=== PATIENT | male | born 1960 | race Caucasian/White ===

== ENCOUNTER 2016-06-29 16:56 | Emergency (ER) | payer MEDICARE, MEDICAID ==
[2016-06-29 17:32] LABS: BASO # 0.1 x10^3/uL (0.0-0.2); BASO % 1 % (0-3); EOS % 2 % (0-3); HEMATOCRIT 49.3 % (39.0-53.0); HEMOGLOBIN 16.8 g/dL (13.0-17.5); LYMPH # 2.6 x10^3/uL (1.0-4.8); LYMPH % 30 % (24-48); MEAN CORPUSCULAR HEMOGLOBIN 32 pg (25-35); MEAN CORPUSCULAR HGB CONC 34 g/dL (31-37); MEAN CORPUSCULAR VOLUME 93 fL (79-100); MONO % 11 % (0-9); NEUT % 56 % (31-73); PLATELET COUNT 242 x10^3/uL (140-400); RED BLOOD COUNT 5.28 x10^6/uL (4.30-5.70); RED CELL DISTRIBUTION WIDTH 13.8 % (11.5-14.5); WHITE BLOOD COUNT 8.8 x10^3/uL (4.0-11.0)
[2016-06-29 17:55] LABS: CREATININE 1.2 mg/dL (0.7-1.3); GFR 63.1
[2016-06-29 18:10] LABS: ALBUMIN 3.5 g/dL (3.4-5.0); TOTAL BILIRUBIN 0.3 mg/dL (0.2-1.0); TOTAL PROTEIN 6.9 g/dL (6.4-8.2)
[2016-06-29 19:05] LABS: BARBITURATES NEG (NEG); BENZODIAZEPINES POS (NEG); CANNABINOIDS NEG (NEG); COCAINE NEG (NEG); METHADONE NEG (NEG); OPIATES NEG (NEG); PHENCYCLIDINE NEG (NEG)
[2016-06-29 19:06] LABS: ETHANOL, URINE POS (NEG)
--- NOTE | 2016-06-29 19:13 | PHYS DOC ---
Past Medical History Past Medical History: Anxiety, Bipolar, Depression, High Cholesterol, Hypertension, Other Additional Past Medical Histor: TBI Past Surgical History: Other Additional Past Surgical Histo: SKIN CA REMOVED(L GROIN), LEFT HAND Alcohol Use: Heavy Drug Use: None Adult General Chief Complaint Chief Complaint: SUICDAL IDEATION HPI HPI 55-year-old male with a long psychiatric history who was just released from [facility] secondary to suicidal ideation returns today stating he would like to slit his wrists with a steak knife. He states he wants to do this because he just wants to be out of pain. He has some pain in his chest which he states he had during his stay [facility]. He denies any nausea or vomiting. He denies diaphoresis. He denies any shortness of breath or dyspnea on exertion. He has not had any fever chills or sweats. He denies any alcohol or illicit drug use. [] Review of Systems Review of Systems Constitutional: Denies fever or chills [] Eyes: Denies change in visual acuity, redness, or eye pain [] HENT: Denies nasal congestion or sore throat [] Respiratory: Denies cough or shortness of breath [] Cardiovascular: No additional information not addressed in HPI [] GI: Denies abdominal pain, nausea, vomiting, bloody stools or diarrhea [] : Denies dysuria or hematuria [] Musculoskeletal: Denies back pain or joint pain [] Integument: Denies rash or skin lesions [] Neurologic: Denies headache, focal weakness or sensory changes [] Endocrine: Denies polyuria or polydipsia [] Allergies Allergies Allergies Coded Allergies Type Severity Reaction Last Updated Verified fluoxetine Allergy Intermediate 06/29/16 Yes haloperidol Allergy Intermediate 06/29/16 Yes sulfamethoxazole Allergy Intermediate 06/29/16 Yes topiramate Allergy Intermediate 06/29/16 Yes trimethoprim Allergy Intermediate 06/29/16 Yes Physical Exam Physical Exam Constitutional: Well developed, well nourished, no acute distress, non-toxic appearance. [] HENT: Normocephalic, atraumatic, bilateral external ears normal, oropharynx moist, no oral exudates, nose normal. [] Eyes: PERRLA, EOMI, conjunctiva normal, no discharge. [] Neck: Normal range of motion, no tenderness, supple, no stridor. [] Cardiovascular:Heart rate regular rhythm, no murmur [] Lungs & Thorax: Bilateral breath sounds clear to auscultation [] Abdomen: Bowel sounds normal, soft, no tenderness, no masses, no pulsatile masses. [] Skin: Warm, dry, no erythema, no rash. [] Back: No tenderness, no CVA tenderness. [] Extremities: No tenderness, no cyanosis, no clubbing, ROM intact, no edema. [] Neurologic: Alert and oriented X 3, normal motor function, normal sensory function, no focal deficits noted. [] Psychologic: Affect normal, judgement normal, mood normal. [] Current Patient Data Vital Signs Vital Signs Date Time Temp Pulse Resp B/P Pulse Ox O2 Delivery O2 Flow Rate FiO2 06/29/16 18:39 93 14 129/87 96 Room Air 06/29/16 17:20 98.6 98.6 Lab Values Laboratory Tests Test 06/29/16 17:05 06/29/16 18:51 White Blood Count 8.8x10^3/uL (4.0-11.0) Red Blood Count 5.28x10^6/uL (4.30-5.70) Hemoglobin 16.8g/dL (13.0-17.5) Hematocrit 49.3% (39.0-53.0) Mean Corpuscular Volume 93fL (79-100) Mean Corpuscular Hemoglobin 32pg (25-35) Mean Corpuscular Hemoglobin Concent 34g/dL (31-37) Red Cell Distribution Width 13.8% (11.5-14.5) Platelet Count 242x10^3/uL (140-400) Neutrophils (%) (Auto) 56% (31-73) Lymphocytes (%) (Auto) 30% (24-48) Monocytes (%) (Auto) 11% (0-9) H Eosinophils (%) (Auto) 2% (0-3) Basophils (%) (Auto) 1% (0-3) Neutrophils # (Auto) 4.9x10^3uL (1.8-7.7) Lymphocytes # (Auto) 2.6x10^3/uL (1.0-4.8) Monocytes # (Auto) 1.0x10^3/uL (0.0-1.1) Eosinophils # (Auto) 0.2x10^3/uL (0.0-0.7) Basophils # (Auto) 0.1x10^3/uL (0.0-0.2) Sodium Level 143mmol/L (136-145) Potassium Level 4.0mmol/L (3.5-5.1) Chloride Level 106mmol/L (98-107) Carbon Dioxide Level 24mmol/L (21-32) Anion Gap 13 (6-14) Blood Urea Nitrogen 10mg/dL (8-26) Creatinine 1.2mg/dL (0.7-1.3) Estimated GFR (Cockcroft-Gault) 63.1 BUN/Creatinine Ratio 8 (6-20) Glucose Level 115mg/dL (70-99) H Calcium Level 9.0mg/dL (8.5-10.1) Total Bilirubin 0.3mg/dL (0.2-1.0) Aspartate Amino Transferase (AST) 19U/L (15-37) Alanine Aminotransferase (ALT) 23U/L (16-63) Alkaline Phosphatase 86U/L (46-116) Troponin I Quantitative < 0.017ng/mL (0.000-0.055) Total Protein 6.9g/dL (6.4-8.2) Albumin 3.5g/dL (3.4-5.0) Albumin/Globulin Ratio 1.0 (1.0-1.7) Ethyl Alcohol Level 172mg/dL (0-10) H Urine Opiates Screen Neg (NEG) Urine Methadone Screen Neg (NEG) Urine Barbiturates Neg (NEG) Urine Phencyclidine Screen Neg (NEG) Urine Amphetamine/Methamphetamine Neg (NEG) Urine Benzodiazepines Screen Pos (NEG) Urine Cocaine Screen Neg (NEG) Urine Cannabinoids Screen Neg (NEG) Urine Ethyl Alcohol Pos (NEG) Laboratory Tests 06/29/16 17:05 Laboratory Tests 06/29/16 17:05 EKG EKG [EKG: Normal sinus rhythm rate of [address]-T changes] Radiology/Procedures Radiology/Procedures [] Course & Med Decision Making Course & Med Decision Making Pertinent Labs and Imaging studies reviewed. (See chart for details) ED course: Evaluation reveals a very anxious depressed 55-year-old male who is suicidal. He is medically cleared from my standpoint. Psychiatric assessment team evaluated the patient and determined that he needed to be readmitted for stabilization. I agree with this assessment.] Dragon Disclaimer Dragon Disclaimer This electronic medical record was generated, in whole or in part, using a voice recognition dictation system. Departure Departure Impression: Primary Impression: Suicidal ideation Disposition: 05 TRANSFER OTHER Condition: STABLE Referrals: NO PCP (PCP) KESHA PUENTE DO Jun 29, 2016 19:12
[2016-06-29] MEDS ORDERED: LIDO:MAALOX:DONNATAL 1:1:1 15 ML SINGLE DOSE SWSW ONE (21:15)
--- NOTE | 2016-06-29 23:27 | ACF ---
Admission Forms Criteria PSYCHIATRIC DISORDERS Clinical Indications for Inpatient Care (Place 'X' for any and all applicable criteria): Ongoing inpatient care may be needed for ANY ONE of the following(1)(2)(3)(4)(6) (7)(8): [X]I. Danger to self or others not manageable at lower level of care. [ ]II. Grave disability (eg, inability to perform self care necessary at lower level of care) [ ]III. Agitation or inappropriate behavior interfering with care for primary condition (eg, attempting to discontinue lines or drains prematurely, unable to cooperate with respiratory care) [ ]IV. Severe disability or disorder indicated by ALL of the following: [ ]a) Severe behavioral health disorder-related symptoms or condition indicated by ANY ONE of the following: [ ]i) Severe problem with cognition, memory, judgment, or impulse control [ ]ii) Severe clinical manifestations (eg, hallucinations, delusions, other acute psychotic symptoms, keegan, extreme agitation or anxiety) [ ]b) Patient management at lower level of care is not feasible until acute intervention or modification is initiated. Extended stay beyond goal length of stay for the primary condition may be indicated when ANY ONE of the following is present: (1)(2)(3)(4): [ ]a) Patient is a danger to self or others and not manageable at lower level of care. [ ]b) Behavior crisis management, including physical or chemical restraints, is required and is not available at a lower level of care. [ ]c) Behavioral symptoms (e.g., agitation, somnolence, inappropriate behavior) are present, and are not manageable at a lower level of care. [ ]d) Patient cannot understand follow-up treatment and crisis plan. [ ]e) Provider and supports are not sufficiently available at lower level of care. [ ]f) Patient cannot participate (e.g., verify absence of plan for harm) and is in needed of monitoring. The original [employer] content created by [employer] has been revised. The portions of the content which have been revised are identified through the use of italic text or in bold, and [facility] has neither reviewed nor approved the modified material. All other unmodified content is copyright [facility] [employer]. Please see references footnoted in the original [facility] edition 2016 Admission Criteria Met?: Yes GERMÁN VILLA Jun 29, 2016 23:26
[2016-06-30 04:22] VITALS: BP 123/83
--- NOTE | 2016-06-30 06:44 | EKG ---
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
== END 2016-06-30 05:13 | disposition short-term general hospital (02) ==
LOC: ER 16:56
DX: R45.851 Suicidal ideations (principal); F32.9 Major depressive disorder, single episode, unspecified; E78.00 Pure hypercholesterolemia, unspecified; I10 Essential (primary) hypertension; Z88.1 Allergy status to other antibiotic agents; Z88.8 Allergy status to other drugs, medicaments and biological substances
CPT/HCPCS: 36415; 80053; 84484; 85027; 93005; 99285; G0480; G0481

== ENCOUNTER 2016-08-18 16:55 | Inpatient (IN) | payer MEDICARE, OTHER ==
[~2016-08-18] VITALS: Ht 188 cm; Wt 86.7 kg
[2016-08-18] MEDS ORDERED: IV NORMAL SALINE 1000ML BAG 1,000 ML IV SCH (17:05)
[2016-08-18 17:23] LABS: BASO # 0.1 x10^3/uL (0.0-0.2); BASO % 1 % (0-3); EOS % 2 % (0-3); HEMATOCRIT 45.9 % (39.0-53.0); HEMOGLOBIN 15.6 g/dL (13.0-17.5); LYMPH # 2.9 x10^3/uL (1.0-4.8); LYMPH % 40 % (24-48); MEAN CORPUSCULAR HEMOGLOBIN 32 pg (25-35); MEAN CORPUSCULAR HGB CONC 34 g/dL (31-37); MEAN CORPUSCULAR VOLUME 95 fL (79-100); MONO % 10 % (0-9); NEUT % 48 % (31-73); PLATELET COUNT 231 x10^3/uL (140-400); RED BLOOD COUNT 4.86 x10^6/uL (4.30-5.70); RED CELL DISTRIBUTION WIDTH 13.6 % (11.5-14.5); WHITE BLOOD COUNT 7.3 x10^3/uL (4.0-11.0)
--- NOTE | 2016-08-18 17:26 | RAD ---
AP portable chest radiograph 08/18/2016 Clinical History: Overdose. An AP portable erect digital radiograph of the chest was obtained. No previous studies are available for comparison. The cardiac silhouette is normal in size. The thoracic aorta is mildly tortuous. Patchy left lower lobe atelectasis and/or infiltrate is seen. No pneumothorax or pleural effusion is seen. The osseous structures are grossly intact. Impression: Patchy left lower lobe atelectasis and/or infiltrate.
--- NOTE | 2016-08-18 17:34 | EKG ---
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
[2016-08-18 17:46] LABS: CALCIUM 8.8 mg/dL (8.5-10.1); CREATININE 1.1 mg/dL (0.7-1.3); GFR 69.8; POTASSIUM 3.6 mmol/L (3.5-5.1)
[2016-08-18 17:47] LABS: ETHANOL 162 mg/dL (0-10)
[2016-08-18 17:55] LABS: ALBUMIN 3.5 g/dL (3.4-5.0); ALBUMIN/GLOBULIN RATIO 1.1 (1.0-1.7); MAGNESIUM 1.9 mg/dL (1.8-2.4); TOTAL BILIRUBIN 0.1 mg/dL (0.2-1.0); TOTAL PROTEIN 6.7 g/dL (6.4-8.2)
--- NOTE | 2016-08-18 17:58 | PHYS DOC ---
Past Medical History Past Medical History: Anxiety, Bipolar, Cancer, Depression, High Cholesterol, Hypertension, Other Additional Past Medical Histor: TBI, SKIN CA, PTSD, NECK COMPRESSION FX Past Surgical History: Other Additional Past Surgical Histo: SKIN CA REMOVED(L GROIN), LEFT HAND, TBI, NECK COMPRESSION FX Alcohol Use: Heavy Additional Information: PT REPORTS DRINKING 1/2 PINT OF RUM TODAY. Drug Use: None Adult General Chief Complaint Chief Complaint: OVERDOSE HPI HPI Patient is a 55 year old female who presents after intentional overdose. Patient reports about 1 hour prior to arrival he took 60 tabs of Seroquel ( 400mg each) in an attempt to kill himself because his 56th birthday is coming up on [birth year]20 and he did not want to make to age 56. He also reports drinking some rum. He says he took 1 tab of tramadol, Valium and Zantac which are his regular meds. He does report prior attempt at self-harm in the past. He denies any acute complaints other than fatigue and SI. Review of Systems Review of Systems Constitutional: Fatigue. Denies fever or chills Eyes: Denies change in visual acuity or eye pain HENT: Denies nasal congestion or sore throat Respiratory: Denies cough or shortness of breath Cardiovascular: Denies chest pain GI: Denies abdominal pain, nausea, vomiting, bloody stools or diarrhea : Denies dysuria or hematuria Musculoskeletal: Denies back pain or joint pain Integument: Denies rash or skin lesions Neurologic: Denies headache, focal weakness or sensory changes Current Medications Current Medications Current Medications Medications (Trade) Dose Ordered Sig/Hayes Start Time Stop Time Status Last Admin Dose Admin Albuterol Sulfate 2.5 mg 2.5 mg PRN Q6HRS PRN 08/18/16 18:45 Enoxaparin Sodium (Lovenox 40mg Syringe) 40 mg DAILY 08/19/16 09:00 UNV Levofloxacin/ Dextrose (LEVAQUIN 500mg PREMIX) 100 ml @ 100 mls/hr Q24H 08/18/16 19:00 Multivit Infusn,Adult 4,Vit K/Folic Acid/Thiamine HCl/ Dextrose/Sodium Chloride (Infuvite Adult/ Iv D5% - 1/2 NS) 1,011.2 ml @ 100 mls/ hr DAILY 08/18/16 19:00 UNV Ondansetron HCl (Zofran) 4 mg PRN Q6HRS PRN 08/18/16 18:45 Pantoprazole Sodium 40 mg 40 mg DAILY 08/19/16 09:00 Sodium Chloride (Iv Sodium Chloride 0.45%) 1,000 ml @ 100 mls/hr 1X ONCE 08/18/16 18:45 08/18/16 18:45 DC Allergies Allergies Allergies Coded Allergies Type Severity Reaction Last Updated Verified fluoxetine Allergy Intermediate 06/29/16 Yes haloperidol Allergy Intermediate 06/29/16 Yes sulfamethoxazole Allergy Intermediate 06/29/16 Yes topiramate Allergy Intermediate 06/29/16 Yes trimethoprim Allergy Intermediate 06/29/16 Yes Physical Exam Physical Exam Constitutional: Well developed, well nourished, no acute distress, non-toxic appearance HENT: Normocephalic, atraumatic, bilateral external ears normal Eyes: PERRL, EOMI, conjunctiva normal, no discharge Neck: Normal range of motion, no stridor Cardiovascular: Heart rate normal, regular rhythm, no murmur Lungs & Thorax: Bilateral breath sounds clear to auscultation Abdomen: Bowel sounds normal, soft, non-distended, no TTP Skin: Warm, dry, no erythema, no rash Extremities: No obvious deformity, no edema Neurologic: Somnolent but easily arousable, oriented X 3, GCS 14, strength and sensation to light touch intact throughout Current Patient Data Vital Signs Vital Signs Date Time Temp Pulse Resp B/P Pulse Ox O2 Delivery O2 Flow Rate FiO2 08/18/16 17:16 88 126/93 98 Nasal Cannula 2 08/18/16 16:55 97.3 16 97.3 Lab Values Laboratory Tests Test 08/18/16 17:10 08/18/16 18:02 White Blood Count 7.3x10^3/uL (4.0-11.0) Red Blood Count 4.86x10^6/uL (4.30-5.70) Hemoglobin 15.6g/dL (13.0-17.5) Hematocrit 45.9% (39.0-53.0) Mean Corpuscular Volume 95fL (79-100) Mean Corpuscular Hemoglobin 32pg (25-35) Mean Corpuscular Hemoglobin Concent 34g/dL (31-37) Red Cell Distribution Width 13.6% (11.5-14.5) Platelet Count 231x10^3/uL (140-400) Neutrophils (%) (Auto) 48% (31-73) Lymphocytes (%) (Auto) 40% (24-48) Monocytes (%) (Auto) 10% (0-9) H Eosinophils (%) (Auto) 2% (0-3) Basophils (%) (Auto) 1% (0-3) Neutrophils # (Auto) 3.5x10^3uL (1.8-7.7) Lymphocytes # (Auto) 2.9x10^3/uL (1.0-4.8) Monocytes # (Auto) 0.7x10^3/uL (0.0-1.1) Eosinophils # (Auto) 0.1x10^3/uL (0.0-0.7) Basophils # (Auto) 0.1x10^3/uL (0.0-0.2) Sodium Level 148mmol/L (136-145) H Potassium Level 3.6mmol/L (3.5-5.1) Chloride Level 111mmol/L (98-107) H Carbon Dioxide Level 25mmol/L (21-32) Anion Gap 12 (6-14) Blood Urea Nitrogen 10mg/dL (8-26) Creatinine 1.1mg/dL (0.7-1.3) Estimated GFR (Cockcroft-Gault) 69.8 BUN/Creatinine Ratio 9 (6-20) Glucose Level 108mg/dL (70-99) H Calcium Level 8.8mg/dL (8.5-10.1) Magnesium Level 1.9mg/dL (1.8-2.4) Total Bilirubin 0.1mg/dL (0.2-1.0) L Aspartate Amino Transferase (AST) 19U/L (15-37) Alanine Aminotransferase (ALT) 24U/L (16-63) Alkaline Phosphatase 100U/L (46-116) Total Protein 6.7g/dL (6.4-8.2) Albumin 3.5g/dL (3.4-5.0) Albumin/Globulin Ratio 1.1 (1.0-1.7) Salicylates Level < 2.8mg/dL (2.8-20.0) L Salicylate Last Dose Date Salicylate Last Dose Time Acetaminophen Level < 2mcg/ml (10-30) L Acetaminophen Last Dose Date Acetaminophen Last Dose Time Ethyl Alcohol Level 162mg/dL (0-10) H Urine Collection Type Unknown Urine Color Yellow Urine Clarity Clear Urine pH 6.0 Urine Specific [place] 1.010 Urine Protein Negativemg/dL (NEG-TRACE) Urine Glucose (UA) Negativemg/dL (NEG) Urine Ketones (Stick) Negativemg/dL (NEG) Urine Blood Negative (NEG) Urine Nitrite Negative (NEG) Urine Bilirubin Negative (NEG) Urine Urobilinogen Dipstick 0.2mg/dL (0.2 mg/dL) Urine Leukocyte Esterase Negative (NEG) Urine RBC 0/HPF (0-2) Urine WBC 0/HPF (0-4) Urine Bacteria 0/HPF (0-FEW) Urine Mucus Slight/LPF Urine Opiates Screen Neg (NEG) Urine Methadone Screen Neg (NEG) Urine Barbiturates Neg (NEG) Urine Phencyclidine Screen Neg (NEG) Urine Amphetamine/Methamphetamine Neg (NEG) Urine Benzodiazepines Screen Pos (NEG) Urine Cocaine Screen Neg (NEG) Urine Cannabinoids Screen Neg (NEG) Urine Ethyl Alcohol Pos (NEG) Laboratory Tests 08/18/16 17:10 Laboratory Tests 08/18/16 17:10 EKG EKG EKG (my read): sinus rhythm, rate 91, LAD, intervals wnl, QTc 435ms, no acute ST /T changes Radiology/Procedures Radiology/Procedures CXR: Impression: Patchy left lower lobe atelectasis and/or infiltrate. Course & Med Decision Making Course & Med Decision Making Pertinent Labs and Imaging studies reviewed. (See chart for details) Patient is 55-year-old male who presents after intentional overdose. Per poison control, will need to watch mental status and keep on equipment monitor phototypesetting due to possibility of arrhythmia (specifically arising from QT prolongation). Just out of timeframe for activated charcoal, and due to concern for declining mental status would not wish to give this anyways. IV fluid bolus ordered. EKG, chest x -ray, labs ordered to evaluate. One-to-one observation ordered. QT normal on EKG. Imaging results as above; as patient does not have symptoms of pneumonia nor leukocytosis or fever, will not treat for that. Labs notable for elevated ethanol level, hypernatremia. Discussed results with patient. Discussed with Dr. Chairez, will admit under her care for further evaluation and treatment. Dragon Disclaimer Dragon Disclaimer This electronic medical record was generated, in whole or in part, using a voice recognition dictation system. Departure Departure Impression: Primary Impression: Overdose Disposition: 09 ADMITTED INPATIENT Admitting Physician: Khai Chairez Condition: GUARDED Referrals: NO PCP (PCP) FELICE RIVERA MD Aug 18, 2016 17:58
[2016-08-18 18:16] LABS: BILIRUBIN,URINE NEGATIVE (NEG); GLUCOSE,URINE NEGATIVE (NEG); NITRITE,URINE NEGATIVE (NEG); PROTEIN,URINE NEGATIVE (NEG-TRACE); UROBILINOGEN,URINE 0.2 mg/dL (0.2 mg/dL)
[2016-08-18 18:20] LABS: BARBITURATES NEG (NEG); BENZODIAZEPINES POS (NEG); CANNABINOIDS NEG (NEG); COCAINE NEG (NEG); METHADONE NEG (NEG); OPIATES NEG (NEG); PHENCYCLIDINE NEG (NEG)
[2016-08-18 18:25] LABS: ETHANOL, URINE POS (NEG)
[2016-08-18 18:27] LABS: RBC,URINE 0 /HPF (0-2); WBC,URINE 0 /HPF (0-4)
[2016-08-18 18:28] LABS: BACTERIA,URINE 0 /HPF (0-FEW)
[2016-08-18] MEDS ORDERED: IV 1/2 NORMAL SALINE 1,000 ML IV ONE (18:45)
[2016-08-18] MEDS ORDERED: ALBUTEROL SULFATE 2.5 MG/3 ML NEBU. NEB PRN (18:45)
--- NOTE | 2016-08-18 18:52 | PDOC1 ---
History and Physical Date of Admission Date of Admission 08/18/16 Identification/Chief Complaint Chief Complaint overdose Problems: Source Source: Chart review, Patient History of Present Illness History of Present Illness 55yo M, was sent from EMS for seroquel overdose. He tried to suicide. He tried other ways to suicide before. He lives a lone, no family or friends. Has bipolar type 2 with severe depression, PTSD. He took 60 pills of seroquel this afternoon, 400mg per pill. He was on the phone with the person from a psych hosp while taking his pills, who called EMS and sent him here. since taking the seroquel, he drank lots of water, with N/V ( bloody), and severe epigastric abd pain. vitals stable in ER. i was told he was lethargic in ER, when i saw him , he was able to talk pretty logically. agree to get psych help and readmit to the psych facility. Past Medical History Past Medical History depression, bipolar Past Surgical History Past Surgical History neck sx Social History Smoke: No ALCOHOL: social Drugs: None Current Problem List Problem List Problems Medical Problems: (1) Overdose Status: Acute (2) Suicidal ideation Status: Acute Current Medications Current Medications Current Medications Medications (Trade) Dose Ordered Sig/Hayes Start Time Stop Time Status Last Admin Dose Admin Albuterol Sulfate 2.5 mg 2.5 mg PRN Q6HRS PRN 08/18/16 18:45 Levofloxacin/ Dextrose (LEVAQUIN 500mg PREMIX) 100 ml @ 100 mls/hr Q24H 08/18/16 19:00 Multivit Infusn,Adult 4,Vit K/Folic Acid/Thiamine HCl/ Dextrose/Sodium Chloride (Infuvite Adult/ Iv D5% - 1/2 NS) 1,011.2 ml @ 100 mls/ hr DAILY 08/19/16 09:00 UNV Ondansetron HCl 4 mg 4 mg PRN Q6HRS PRN 08/18/16 18:45 Sodium Chloride (Iv Sodium Chloride 0.45%) 1,000 ml @ 100 mls/hr 1X ONCE 08/18/16 18:45 08/18/16 18:45 DC Allergies Allergies Allergies Coded Allergies Type Severity Reaction Last Updated Verified fluoxetine Allergy Intermediate 06/29/16 Yes haloperidol Allergy Intermediate 06/29/16 Yes sulfamethoxazole Allergy Intermediate 06/29/16 Yes topiramate Allergy Intermediate 06/29/16 Yes trimethoprim Allergy Intermediate 06/29/16 Yes ROS Review of System CONSTITUTIONAL: No fever or chills EYES: No recent changes SKIN: No rash or itching CARDIOVASCULAR: No chest pain, syncope, palpitations, or edema RESPIRATORY: No SOB or cough GASTROINTESTINAL: No nausea, vomiting or abdominal pain NEUROLOGICAL: No headaches or weakness ENDOCRINE: No cold or heat intolerance GENITOURINARY: No urgency or frequency of urination MUSCULOSKELETAL: No back pain or joint pain LYMPHATICS: No enlarged lymph nodes PSYCHIATRIC: No anxiety or depression Physical Exam Physical Exam GEN.: No apparent distress. Alert and oriented. HEENT: Head is normocephalic, atraumatic NECK: Supple. LUNGS: Clear to auscultation. HEART: RRR, S1, S2 present. Peripheral pulses intact ABDOMEN: Soft, nontender. Positive bowel sounds. EXTREMITIES: Without any cyanosis. NEUROLOGIC: Normal speech, normal tone PSYCHIATRIC: Normal affect, normal mood. SKIN: No ulcerations Vitals Vitals Vital Signs Date Time Temp Pulse Resp B/P Pulse Ox O2 Delivery O2 Flow Rate FiO2 08/18/16 17:16 88 126/93 98 Nasal Cannula 2 08/18/16 16:55 97.3 16 97.3 Labs Labs Laboratory Tests Test 08/18/16 17:10 08/18/16 18:02 White Blood Count 7.3x10^3/uL (4.0-11.0) Red Blood Count 4.86x10^6/uL (4.30-5.70) Hemoglobin 15.6g/dL (13.0-17.5) Hematocrit 45.9% (39.0-53.0) Mean Corpuscular Volume 95fL (79-100) Mean Corpuscular Hemoglobin 32pg (25-35) Mean Corpuscular Hemoglobin Concent 34g/dL (31-37) Red Cell Distribution Width 13.6% (11.5-14.5) Platelet Count 231x10^3/uL (140-400) Neutrophils (%) (Auto) 48% (31-73) Lymphocytes (%) (Auto) 40% (24-48) Monocytes (%) (Auto) 10% (0-9) Eosinophils (%) (Auto) 2% (0-3) Basophils (%) (Auto) 1% (0-3) Neutrophils # (Auto) 3.5x10^3uL (1.8-7.7) Lymphocytes # (Auto) 2.9x10^3/uL (1.0-4.8) Monocytes # (Auto) 0.7x10^3/uL (0.0-1.1) Eosinophils # (Auto) 0.1x10^3/uL (0.0-0.7) Basophils # (Auto) 0.1x10^3/uL (0.0-0.2) Sodium Level 148mmol/L (136-145) Potassium Level 3.6mmol/L (3.5-5.1) Chloride Level 111mmol/L (98-107) Carbon Dioxide Level 25mmol/L (21-32) Anion Gap 12 (6-14) Blood Urea Nitrogen 10mg/dL (8-26) Creatinine 1.1mg/dL (0.7-1.3) Estimated GFR (Cockcroft-Gault) 69.8 BUN/Creatinine Ratio 9 (6-20) Glucose Level 108mg/dL (70-99) Calcium Level 8.8mg/dL (8.5-10.1) Magnesium Level 1.9mg/dL (1.8-2.4) Total Bilirubin 0.1mg/dL (0.2-1.0) Aspartate Amino Transf (AST/SGOT) 19U/L (15-37) Alanine Aminotransferase (ALT/SGPT) 24U/L (16-63) Alkaline Phosphatase 100U/L (46-116) Total Protein 6.7g/dL (6.4-8.2) Albumin 3.5g/dL (3.4-5.0) Albumin/Globulin Ratio 1.1 (1.0-1.7) Salicylates Level < 2.8mg/dL (2.8-20.0) Salicylate Last Dose Date Salicylate Last Dose Time Acetaminophen Level < 2mcg/ml (10-30) Acetaminophen Last Dose Date Acetaminophen Last Dose Time Ethyl Alcohol Level 162mg/dL (0-10) Urine Collection Type Unknown Urine Color Yellow Urine Clarity Clear Urine pH 6.0 Urine Specific [place] 1.010 Urine Protein Negativemg/dL (NEG-TRACE) Urine Glucose (UA) Negativemg/dL (NEG) Urine Ketones (Stick) Negativemg/dL (NEG) Urine Blood Negative (NEG) Urine Nitrite Negative (NEG) Urine Bilirubin Negative (NEG) Urine Urobilinogen Dipstick 0.2mg/dL (0.2 mg/dL) Urine Leukocyte Esterase Negative (NEG) Urine RBC 0/HPF (0-2) Urine WBC 0/HPF (0-4) Urine Bacteria 0/HPF (0-FEW) Urine Mucus Slight/LPF Urine Opiates Screen Neg (NEG) Urine Methadone Screen Neg (NEG) Urine Barbiturates Neg (NEG) Urine Phencyclidine Screen Neg (NEG) Urine Amphetamine/Methamphetamine Neg (NEG) Urine Benzodiazepines Screen Pos (NEG) Urine Cocaine Screen Neg (NEG) Urine Cannabinoids Screen Neg (NEG) Urine Ethyl Alcohol Pos (NEG) Laboratory Tests Test 08/18/16 17:10 08/18/16 18:02 White Blood Count 7.3x10^3/uL (4.0-11.0) Red Blood Count 4.86x10^6/uL (4.30-5.70) Hemoglobin 15.6g/dL (13.0-17.5) Hematocrit 45.9% (39.0-53.0) Mean Corpuscular Volume 95fL (79-100) Mean Corpuscular Hemoglobin 32pg (25-35) Mean Corpuscular Hemoglobin Concent 34g/dL (31-37) Red Cell Distribution Width 13.6% (11.5-14.5) Platelet Count 231x10^3/uL (140-400) Neutrophils (%) (Auto) 48% (31-73) Lymphocytes (%) (Auto) 40% (24-48) Monocytes (%) (Auto) 10% (0-9) Eosinophils (%) (Auto) 2% (0-3) Basophils (%) (Auto) 1% (0-3) Neutrophils # (Auto) 3.5x10^3uL (1.8-7.7) Lymphocytes # (Auto) 2.9x10^3/uL (1.0-4.8) Monocytes # (Auto) 0.7x10^3/uL (0.0-1.1) Eosinophils # (Auto) 0.1x10^3/uL (0.0-0.7) Basophils # (Auto) 0.1x10^3/uL (0.0-0.2) Sodium Level 148mmol/L (136-145) Potassium Level 3.6mmol/L (3.5-5.1) Chloride Level 111mmol/L (98-107) Carbon Dioxide Level 25mmol/L (21-32) Anion Gap 12 (6-14) Blood Urea Nitrogen 10mg/dL (8-26) Creatinine 1.1mg/dL (0.7-1.3) Estimated GFR (Cockcroft-Gault) 69.8 BUN/Creatinine Ratio 9 (6-20) Glucose Level 108mg/dL (70-99) Calcium Level 8.8mg/dL (8.5-10.1) Magnesium Level 1.9mg/dL (1.8-2.4) Total Bilirubin 0.1mg/dL (0.2-1.0) Aspartate Amino Transf (AST/SGOT) 19U/L (15-37) Alanine Aminotransferase (ALT/SGPT) 24U/L (16-63) Alkaline Phosphatase 100U/L (46-116) Total Protein 6.7g/dL (6.4-8.2) Albumin 3.5g/dL (3.4-5.0) Albumin/Globulin Ratio 1.1 (1.0-1.7) Salicylates Level < 2.8mg/dL (2.8-20.0) Salicylate Last Dose Date Salicylate Last Dose Time Acetaminophen Level < 2mcg/ml (10-30) Acetaminophen Last Dose Date Acetaminophen Last Dose Time Ethyl Alcohol Level 162mg/dL (0-10) Urine Collection Type Unknown Urine Color Yellow Urine Clarity Clear Urine pH 6.0 Urine Specific [place] 1.010 Urine Protein Negativemg/dL (NEG-TRACE) Urine Glucose (UA) Negativemg/dL (NEG) Urine Ketones (Stick) Negativemg/dL (NEG) Urine Blood Negative (NEG) Urine Nitrite Negative (NEG) Urine Bilirubin Negative (NEG) Urine Urobilinogen Dipstick 0.2mg/dL (0.2 mg/dL) Urine Leukocyte Esterase Negative (NEG) Urine RBC 0/HPF (0-2) Urine WBC 0/HPF (0-4) Urine Bacteria 0/HPF (0-FEW) Urine Mucus Slight/LPF Urine Opiates Screen Neg (NEG) Urine Methadone Screen Neg (NEG) Urine Barbiturates Neg (NEG) Urine Phencyclidine Screen Neg (NEG) Urine Amphetamine/Methamphetamine Neg (NEG) Urine Benzodiazepines Screen Pos (NEG) Urine Cocaine Screen Neg (NEG) Urine Cannabinoids Screen Neg (NEG) Urine Ethyl Alcohol Pos (NEG) VTE Prophylaxis Ordered VTE Prophylaxis Devices: Yes VTE Pharmacological Prophylaxi: Yes Assessment/Plan Assessment/Plan 1. suicidal attempt with drug overdose (seroquel) 2. previous suicidal attempts 3. severe depression, bipolar type 2 4. HTN 5. HLD 6. PTSD 7. HYPernatremia plan: 1. sw, psych eval 2. 1 to 1 ob ok to admit to ICU 3. ivf with banana bag EKG tmr, monitor QT dvt ppx npo for now, gi ppx SALVADOR OBRIEN MD Aug 18, 2016 18:52
[2016-08-18] MEDS ORDERED: MULTIVIT INFUSN,ADULT 4,VIT K 10 ML, FOLIC ACID 1 MG, THIAMINE 100 MG in IV DEXTROSE 5 ... IV SCH (19:00)
--- NOTE | 2016-08-18 20:04 | ACF ---
Admission Forms Criteria DRUG INGESTION OR OVERDOSE Clinical Indications for Admission to Inpatient Care ( Place 'X' for any and all applicable criteria): Admission is indicated for severe toxicity as indicated by ANY ONE of the following(1)(2)(3)(4)(5)(6): [X]I. Inpatient admission required rather than observation care (Also use Drug Ingestion or Overdose: Observation Care guideline as appropriate) because of ANY ONE of the following: [ ]a) Altered mental status that is severe or persistent [ ]b) Clinical finding (eg, metabolic acidosis, hypoglycemia, bradycardia) that is severe or persistent [ ]c) Toxic drug level that is persistent [X]d) Psychiatric risk status not acceptable for outpatient management [ ]e) Continuous intravenous infusion of anticoagulation, platelet inhibitor, vasoactive, or antiarrhythmic medication (15)(16) [ ]f) Other condition, treatment or monitoring requiring inpatient admission [ ]II. Respiratory abnormalities [ ]III. Specific finding indicating severe and likely prolonged drug toxicity [ ]IV. Hemodynamic instability [ ]V. Dangerous arrhythmia [ ]. Hypertension requiring inpatient treatment Extended stay beyond goal length of stay may be needed for (4): [ ]a) Neurologic or respiratory compromise [ ]b) Hemodynamic instability [ ]c) Persistent toxic drug levels (25) [ ]d) Severe drug toxicities or complications [ ]e) Ongoing antidote treatment (eg, acetaminophen overdose)(5) [ ]f) Older patients(65 years or older) The original [employer] content created by [employer] has been revised. The portions of the content which have been revised are identified through the use of italic text or in bold, and [facility] has neither reviewed nor approved the modified material. All other unmodified content is copyright [employer]. Please see references footnoted in the original [employer] edition 2016 Admission Criteria Met?: Yes GERMÁN VILLA Aug 18, 2016 20:04
[2016-08-18 20:15] VITALS: BP 140/91
[2016-08-18 20:30] VITALS: BP 138/91
[2016-08-18] MEDS: MULTIVIT INFUSN,ADULT 4,VIT K 10 ML, FOLIC ACID 1 MG, THIAMINE 100 MG in IV DEXTROSE 5 ... IV SCH (20:34)
[2016-08-18] MEDS: ENOXAPARIN 40 MG/0.4 ML DISP.SYRIN. SQ SCH (20:50)
[2016-08-18] MEDS: ONDANSETRON PF 4 MG/2 ML VIAL. IV PRN (21:18)
[2016-08-18 21:52] VITALS: BP 140/87
[2016-08-18 23:02] VITALS: BP 120/88
[2016-08-18] MEDS ORDERED: QUET400T PO (23:23)
[2016-08-18] MEDS ORDERED: DIAZEPAM10 MG PO (23:23)
[2016-08-18] MEDS ORDERED: CYPR4TAB (23:23)
[2016-08-18] MEDS ORDERED: TRAM50TA PO (23:23)
[2016-08-18] MEDS ORDERED: RANI300T PO (23:23)
[2016-08-19] VITALS (17 sets, daily range): BP systolic 107–158; BP diastolic 71–92
[2016-08-19] MEDS: ONDANSETRON PF 4 MG/2 ML VIAL. IV PRN (03:21)
[2016-08-19 05:54] LABS: BASO # 0.1 x10^3/uL (0.0-0.2); BASO % 1 % (0-3); EOS % 1 % (0-3); HEMOGLOBIN 14.7 g/dL (13.0-17.5); LYMPH # 1.9 x10^3/uL (1.0-4.8); LYMPH % 16 % (24-48); MEAN CORPUSCULAR HEMOGLOBIN 31 pg (25-35); MEAN CORPUSCULAR HGB CONC 33 g/dL (31-37); MEAN CORPUSCULAR VOLUME 96 fL (79-100); MONO % 10 % (0-9); NEUT % 73 % (31-73); PLATELET COUNT 224 x10^3/uL (140-400); RED BLOOD COUNT 4.68 x10^6/uL (4.30-5.70); RED CELL DISTRIBUTION WIDTH 13.9 % (11.5-14.5); WHITE BLOOD COUNT 11.8 x10^3/uL (4.0-11.0)
[2016-08-19 06:06] LABS: CALCIUM 8.4 mg/dL (8.5-10.1); CREATININE 1.2 mg/dL (0.7-1.3); GFR 63.1; POTASSIUM 3.8 mmol/L (3.5-5.1)
--- NOTE | 2016-08-19 08:06 | EKG ---
[facility] [address] [place] [address] Test Date: 2016-08-19 Test Time: 07:56:17 Pat Name: ISELA LÓPEZ Department: Room: Gender: M Joint Filler: : 1960 Requested By: SALVADOR OBRIEN Order Number: [id number] Reading MD: Measurements Intervals [place] Rate: 87 P: 50 IA: 142 QRS: -43 QRSD: 102 T: 44 QT: 368 QTc: 449 Interpretive Statements SINUS RHYTHM LOW LIMB LEAD VOLTAGE LEFT ANTERIOR FASCICULAR BLOCK INCOMPLETE RIGHT BUNDLE BRANCH BLOCK ABNORMAL ECG RI6.01 No previous ECG available for comparison
[2016-08-19] MEDS ORDERED: DIAZEPAM10 MG PO (08:49)
[2016-08-19] MEDS ORDERED: PANTOPRAZOLE IV PUSH 40 MG VIAL. IVP SCH (09:00)
[2016-08-19] MEDS: MULTIVIT INFUSN,ADULT 4,VIT K 10 ML, FOLIC ACID 1 MG, THIAMINE 100 MG in IV DEXTROSE 5 ... IV SCH (09:16)
[2016-08-19] MEDS: FAMOTIDINE 20 MG TABLET. PO SCH (10:31)
[2016-08-19] MEDS: TRAMADOL 50 MG TABLET. PO PRN ×2 (10:32→16:55)
[2016-08-19] MEDS: QUEtiapine 100 MG TABLET. PO SCH ×2 (11:00→15:49)
[2016-08-19] MEDS: DIAZEPAM 5 MG TABLET PO SCH ×2 (11:30→15:48)
--- NOTE | 2016-08-19 11:53 | PDOC ---
PROGRESS NOTES Chief Complaint Chief Complaint 1. suicidal attempt with drug overdose 2. previous suicidal attempts 3. severe depression, bipolar type 2 4. HTN 5. HLD 6. PTSD 7. Hypernatremia 8. nausea, poor po intake, 9. EtOH abuse pl History of Present Illness History of Present Illness PAT team eval pending pt has marked nausea, try mult nausea meds, IV fluid, will need to eat a little better Vitals Vitals Vital Signs Date Time Temp Pulse Resp B/P Pulse Ox O2 Delivery O2 Flow Rate FiO2 08/19/16 11:32 15 96 Room Air 08/19/16 11:00 78 134/80 08/19/16 08:00 97.9 2.0 97.9 Physical Exam General: Alert, Oriented X3, Cooperative Heart: Regular rate, Normal S1 Lungs: Wheezing Abdomen: Soft Extremities: No clubbing Skin: No breakdown Labs LABS Laboratory Tests Test 08/18/16 17:10 08/18/16 18:02 08/19/16 05:30 White Blood Count 7.3x10^3/uL (4.0-11.0) 11.8x10^3/uL (4.0-11.0) Red Blood Count 4.86x10^6/uL (4.30-5.70) 4.68x10^6/uL (4.30-5.70) Hemoglobin 15.6g/dL (13.0-17.5) 14.7g/dL (13.0-17.5) Hematocrit 45.9% (39.0-53.0) 45.0% (39.0-53.0) Mean Corpuscular Volume 95fL (79-100) 96fL (79-100) Mean Corpuscular Hemoglobin 32pg (25-35) 31pg (25-35) Mean Corpuscular Hemoglobin Concent 34g/dL (31-37) 33g/dL (31-37) Red Cell Distribution Width 13.6% (11.5-14.5) 13.9% (11.5-14.5) Platelet Count 231x10^3/uL (140-400) 224x10^3/uL (140-400) Neutrophils (%) (Auto) 48% (31-73) 73% (31-73) Lymphocytes (%) (Auto) 40% (24-48) 16% (24-48) Monocytes (%) (Auto) 10% (0-9) 10% (0-9) Eosinophils (%) (Auto) 2% (0-3) 1% (0-3) Basophils (%) (Auto) 1% (0-3) 1% (0-3) Neutrophils # (Auto) 3.5x10^3uL (1.8-7.7) 8.6x10^3uL (1.8-7.7) Lymphocytes # (Auto) 2.9x10^3/uL (1.0-4.8) 1.9x10^3/uL (1.0-4.8) Monocytes # (Auto) 0.7x10^3/uL (0.0-1.1) 1.1x10^3/uL (0.0-1.1) Eosinophils # (Auto) 0.1x10^3/uL (0.0-0.7) 0.1x10^3/uL (0.0-0.7) Basophils # (Auto) 0.1x10^3/uL (0.0-0.2) 0.1x10^3/uL (0.0-0.2) Sodium Level 148mmol/L (136-145) 146mmol/L (136-145) Potassium Level 3.6mmol/L (3.5-5.1) 3.8mmol/L (3.5-5.1) Chloride Level 111mmol/L (98-107) 110mmol/L (98-107) Carbon Dioxide Level 25mmol/L (21-32) 25mmol/L (21-32) Anion Gap 12 (6-14) 11 (6-14) Blood Urea Nitrogen 10mg/dL (8-26) 9mg/dL (8-26) Creatinine 1.1mg/dL (0.7-1.3) 1.2mg/dL (0.7-1.3) Estimated GFR (Cockcroft-Gault) 69.8 63.1 BUN/Creatinine Ratio 9 (6-20) Glucose Level 108mg/dL (70-99) 94mg/dL (70-99) Calcium Level 8.8mg/dL (8.5-10.1) 8.4mg/dL (8.5-10.1) Magnesium Level 1.9mg/dL (1.8-2.4) Total Bilirubin 0.1mg/dL (0.2-1.0) Aspartate Amino Transf (AST/SGOT) 19U/L (15-37) Alanine Aminotransferase (ALT/SGPT) 24U/L (16-63) Alkaline Phosphatase 100U/L (46-116) Total Protein 6.7g/dL (6.4-8.2) Albumin 3.5g/dL (3.4-5.0) Albumin/Globulin Ratio 1.1 (1.0-1.7) Salicylates Level < 2.8mg/dL (2.8-20.0) Salicylate Last Dose Date Salicylate Last Dose Time Acetaminophen Level < 2mcg/ml (10-30) Acetaminophen Last Dose Date Acetaminophen Last Dose Time Ethyl Alcohol Level 162mg/dL (0-10) Urine Collection Type Unknown Urine Color Yellow Urine Clarity Clear Urine pH 6.0 Urine Specific [place] 1.010 Urine Protein Negativemg/dL (NEG-TRACE) Urine Glucose (UA) Negativemg/dL (NEG) Urine Ketones (Stick) Negativemg/dL (NEG) Urine Blood Negative (NEG) Urine Nitrite Negative (NEG) Urine Bilirubin Negative (NEG) Urine Urobilinogen Dipstick 0.2mg/dL (0.2 mg/dL) Urine Leukocyte Esterase Negative (NEG) Urine RBC 0/HPF (0-2) Urine WBC 0/HPF (0-4) Urine Bacteria 0/HPF (0-FEW) Urine Mucus Slight/LPF Urine Opiates Screen Neg (NEG) Urine Methadone Screen Neg (NEG) Urine Barbiturates Neg (NEG) Urine Phencyclidine Screen Neg (NEG) Urine Amphetamine/Methamphetamine Neg (NEG) Urine Benzodiazepines Screen Pos (NEG) Urine Cocaine Screen Neg (NEG) Urine Cannabinoids Screen Neg (NEG) Urine Ethyl Alcohol Pos (NEG) Assessment and Plan Assessmemt and Plan PAT team yogi GARDNER ICU care, ok to transfer to floor, 1:1 Problems Medical Problems: (1) Overdose Status: Acute (2) Suicidal ideation Status: Acute Problems: Comment Review of Relevant I have reviewed the following items juan (where applicable) has been applied. Labs Laboratory Tests Test 08/18/16 17:10 08/18/16 18:02 08/19/16 05:30 White Blood Count 7.3x10^3/uL (4.0-11.0) 11.8x10^3/uL (4.0-11.0) Red Blood Count 4.86x10^6/uL (4.30-5.70) 4.68x10^6/uL (4.30-5.70) Hemoglobin 15.6g/dL (13.0-17.5) 14.7g/dL (13.0-17.5) Hematocrit 45.9% (39.0-53.0) 45.0% (39.0-53.0) Mean Corpuscular Volume 95fL (79-100) 96fL (79-100) Mean Corpuscular Hemoglobin 32pg (25-35) 31pg (25-35) Mean Corpuscular Hemoglobin Concent 34g/dL (31-37) 33g/dL (31-37) Red Cell Distribution Width 13.6% (11.5-14.5) 13.9% (11.5-14.5) Platelet Count 231x10^3/uL (140-400) 224x10^3/uL (140-400) Neutrophils (%) (Auto) 48% (31-73) 73% (31-73) Lymphocytes (%) (Auto) 40% (24-48) 16% (24-48) Monocytes (%) (Auto) 10% (0-9) 10% (0-9) Eosinophils (%) (Auto) 2% (0-3) 1% (0-3) Basophils (%) (Auto) 1% (0-3) 1% (0-3) Neutrophils # (Auto) 3.5x10^3uL (1.8-7.7) 8.6x10^3uL (1.8-7.7) Lymphocytes # (Auto) 2.9x10^3/uL (1.0-4.8) 1.9x10^3/uL (1.0-4.8) Monocytes # (Auto) 0.7x10^3/uL (0.0-1.1) 1.1x10^3/uL (0.0-1.1) Eosinophils # (Auto) 0.1x10^3/uL (0.0-0.7) 0.1x10^3/uL (0.0-0.7) Basophils # (Auto) 0.1x10^3/uL (0.0-0.2) 0.1x10^3/uL (0.0-0.2) Sodium Level 148mmol/L (136-145) 146mmol/L (136-145) Potassium Level 3.6mmol/L (3.5-5.1) 3.8mmol/L (3.5-5.1) Chloride Level 111mmol/L (98-107) 110mmol/L (98-107) Carbon Dioxide Level 25mmol/L (21-32) 25mmol/L (21-32) Anion Gap 12 (6-14) 11 (6-14) Blood Urea Nitrogen 10mg/dL (8-26) 9mg/dL (8-26) Creatinine 1.1mg/dL (0.7-1.3) 1.2mg/dL (0.7-1.3) Estimated GFR (Cockcroft-Gault) 69.8 63.1 BUN/Creatinine Ratio 9 (6-20) Glucose Level 108mg/dL (70-99) 94mg/dL (70-99) Calcium Level 8.8mg/dL (8.5-10.1) 8.4mg/dL (8.5-10.1) Magnesium Level 1.9mg/dL (1.8-2.4) Total Bilirubin 0.1mg/dL (0.2-1.0) Aspartate Amino Transf (AST/SGOT) 19U/L (15-37) Alanine Aminotransferase (ALT/SGPT) 24U/L (16-63) Alkaline Phosphatase 100U/L (46-116) Total Protein 6.7g/dL (6.4-8.2) Albumin 3.5g/dL (3.4-5.0) Albumin/Globulin Ratio 1.1 (1.0-1.7) Salicylates Level < 2.8mg/dL (2.8-20.0) Salicylate Last Dose Date Salicylate Last Dose Time Acetaminophen Level < 2mcg/ml (10-30) Acetaminophen Last Dose Date Acetaminophen Last Dose Time Ethyl Alcohol Level 162mg/dL (0-10) Urine Collection Type Unknown Urine Color Yellow Urine Clarity Clear Urine pH 6.0 Urine Specific [place] 1.010 Urine Protein Negativemg/dL (NEG-TRACE) Urine Glucose (UA) Negativemg/dL (NEG) Urine Ketones (Stick) Negativemg/dL (NEG) Urine Blood Negative (NEG) Urine Nitrite Negative (NEG) Urine Bilirubin Negative (NEG) Urine Urobilinogen Dipstick 0.2mg/dL (0.2 mg/dL) Urine Leukocyte Esterase Negative (NEG) Urine RBC 0/HPF (0-2) Urine WBC 0/HPF (0-4) Urine Bacteria 0/HPF (0-FEW) Urine Mucus Slight/LPF Urine Opiates Screen Neg (NEG) Urine Methadone Screen Neg (NEG) Urine Barbiturates Neg (NEG) Urine Phencyclidine Screen Neg (NEG) Urine Amphetamine/Methamphetamine Neg (NEG) Urine Benzodiazepines Screen Pos (NEG) Urine Cocaine Screen Neg (NEG) Urine Cannabinoids Screen Neg (NEG) Urine Ethyl Alcohol Pos (NEG) Laboratory Tests Test 08/18/16 17:10 08/18/16 18:02 08/19/16 05:30 White Blood Count 7.3x10^3/uL (4.0-11.0) 11.8x10^3/uL (4.0-11.0) Red Blood Count 4.86x10^6/uL (4.30-5.70) 4.68x10^6/uL (4.30-5.70) Hemoglobin 15.6g/dL (13.0-17.5) 14.7g/dL (13.0-17.5) Hematocrit 45.9% (39.0-53.0) 45.0% (39.0-53.0) Mean Corpuscular Volume 95fL (79-100) 96fL (79-100) Mean Corpuscular Hemoglobin 32pg (25-35) 31pg (25-35) Mean Corpuscular Hemoglobin Concent 34g/dL (31-37) 33g/dL (31-37) Red Cell Distribution Width 13.6% (11.5-14.5) 13.9% (11.5-14.5) Platelet Count 231x10^3/uL (140-400) 224x10^3/uL (140-400) Neutrophils (%) (Auto) 48% (31-73) 73% (31-73) Lymphocytes (%) (Auto) 40% (24-48) 16% (24-48) Monocytes (%) (Auto) 10% (0-9) 10% (0-9) Eosinophils (%) (Auto) 2% (0-3) 1% (0-3) Basophils (%) (Auto) 1% (0-3) 1% (0-3) Neutrophils # (Auto) 3.5x10^3uL (1.8-7.7) 8.6x10^3uL (1.8-7.7) Lymphocytes # (Auto) 2.9x10^3/uL (1.0-4.8) 1.9x10^3/uL (1.0-4.8) Monocytes # (Auto) 0.7x10^3/uL (0.0-1.1) 1.1x10^3/uL (0.0-1.1) Eosinophils # (Auto) 0.1x10^3/uL (0.0-0.7) 0.1x10^3/uL (0.0-0.7) Basophils # (Auto) 0.1x10^3/uL (0.0-0.2) 0.1x10^3/uL (0.0-0.2) Sodium Level 148mmol/L (136-145) 146mmol/L (136-145) Potassium Level 3.6mmol/L (3.5-5.1) 3.8mmol/L (3.5-5.1) Chloride Level 111mmol/L (98-107) 110mmol/L (98-107) Carbon Dioxide Level 25mmol/L (21-32) 25mmol/L (21-32) Anion Gap 12 (6-14) 11 (6-14) Blood Urea Nitrogen 10mg/dL (8-26) 9mg/dL (8-26) Creatinine 1.1mg/dL (0.7-1.3) 1.2mg/dL (0.7-1.3) Estimated GFR (Cockcroft-Gault) 69.8 63.1 BUN/Creatinine Ratio 9 (6-20) Glucose Level 108mg/dL (70-99) 94mg/dL (70-99) Calcium Level 8.8mg/dL (8.5-10.1) 8.4mg/dL (8.5-10.1) Magnesium Level 1.9mg/dL (1.8-2.4) Total Bilirubin 0.1mg/dL (0.2-1.0) Aspartate Amino Transf (AST/SGOT) 19U/L (15-37) Alanine Aminotransferase (ALT/SGPT) 24U/L (16-63) Alkaline Phosphatase 100U/L (46-116) Total Protein 6.7g/dL (6.4-8.2) Albumin 3.5g/dL (3.4-5.0) Albumin/Globulin Ratio 1.1 (1.0-1.7) Salicylates Level < 2.8mg/dL (2.8-20.0) Salicylate Last Dose Date Salicylate Last Dose Time Acetaminophen Level < 2mcg/ml (10-30) Acetaminophen Last Dose Date Acetaminophen Last Dose Time Ethyl Alcohol Level 162mg/dL (0-10) Urine Collection Type Unknown Urine Color Yellow Urine Clarity Clear Urine pH 6.0 Urine Specific [place] 1.010 Urine Protein Negativemg/dL (NEG-TRACE) Urine Glucose (UA) Negativemg/dL (NEG) Urine Ketones (Stick) Negativemg/dL (NEG) Urine Blood Negative (NEG) Urine Nitrite Negative (NEG) Urine Bilirubin Negative (NEG) Urine Urobilinogen Dipstick 0.2mg/dL (0.2 mg/dL) Urine Leukocyte Esterase Negative (NEG) Urine RBC 0/HPF (0-2) Urine WBC 0/HPF (0-4) Urine Bacteria 0/HPF (0-FEW) Urine Mucus Slight/LPF Urine Opiates Screen Neg (NEG) Urine Methadone Screen Neg (NEG) Urine Barbiturates Neg (NEG) Urine Phencyclidine Screen Neg (NEG) Urine Amphetamine/Methamphetamine Neg (NEG) Urine Benzodiazepines Screen Pos (NEG) Urine Cocaine Screen Neg (NEG) Urine Cannabinoids Screen Neg (NEG) Urine Ethyl Alcohol Pos (NEG) Medications Current Medications Sodium Chloride 1,000 ml @ 1,000 mls/hr Q1H IV Last administered on 08/18/16t 17:00; Start 08/18/16 at 17:05; Stop 08/18/16 at 18:04; Status DC Levofloxacin/ Dextrose (LEVAQUIN 500mg PREMIX) 100 ml @ 100 mls/hr Q24H IV Last administered on 08/18/16 20:34; Start 08/18/16 at 19:00 Albuterol Sulfate 2.5 mg 2.5 mg PRN Q6HRS PRN NEB SHORTNESS OF BREATH; Start at 18:45 Sodium Chloride (Iv Sodium Chloride 0.45%) 1,000 ml @ 100 mls/hr 1X ONCE IV ; Start 08/18/16 at 18:45; Stop 08/18/16 at 18:45; Status DC Ondansetron HCl 4 mg 4 mg PRN Q6HRS PRN IV NAUSEA Last administered on 03:21; Start 08/18/16 at 18:45 Multivit Infusn,Adult 4,Vit K/Folic Acid/Thiamine HCl/ Dextrose/Sodium Chloride (Infuvite Adult/ Iv D5% - 1/2 NS) 1,011.2 ml @ 100 mls/ hr DAILY IV Last administered on 08/19/16 09:16; Start 08/18/16 at 21:00 Enoxaparin Sodium (Lovenox 40mg Syringe) 40 mg QHS SQ Last administered on 20:50; Start 08/18/16 at 21:00 Pantoprazole Sodium 40 mg 40 mg DAILY IVP Last administered on 08/19/16 10:15; Start 08/19/16 at 09:00 Multivit Infusn,Adult 4,Vit K/Folic Acid/Thiamine HCl/ Dextrose/Sodium Chloride (Infuvite Adult/ Iv D5% - 1/2 NS) 1,011.2 ml @ 100 mls/ hr DAILY IV ; Start 08/18/16 at 19:00; Status UNV Tramadol HCl (Ultram) 100 mg PRN Q6HRS PRN PO PAIN Last administered on 10:32; Start 08/19/16 at 10:00 Diazepam (Valium) 10 mg NOON PO ; Start 08/19/16 at 12:00 Diazepam (Valium) 20 mg DAILY05 PO ; Start 08/20/16 at 05:00; Stop 08/20/16 at 05: 00; Status DC Quetiapine Fumarate (SEROquel) 400 mg BIDAC PO ; Start 08/19/16 at 11:00 Famotidine (Pepcid) 40 mg DAILY06 PO Last administered on 08/19/16 10:31; Start 08/19/16 at 11:00 Diazepam (Valium) 20 mg DAILY05 PO Last administered on 08/19/16 11:30; Start 08/19/16 at 10:30 Active Scripts Active Reported Diazepam 10 Mg Tablet 10 Mg PO NOON Quetiapine Fumarate 400 Mg Tablet 400 Mg PO BIDACBL 30 Days Tramadol Hcl 50 Mg Tablet 100 Mg PO Q6HRS PRN Ranitidine Hcl 300 Mg Tablet 300 Mg PO DAILY05 30 Days Diazepam 10 Mg Tablet 20 Mg PO DAILY05 30 Days Vitals/I & O Vital Sign - Last 24 Hours 08/18/16 08/18/16 08/18/16 08/18/16 16:55 17:06 17:11 17:16 Temp 97.3 97.3 Pulse 92 92 89 88 Resp 16 B/P 144/95 134/93 130/93 126/93 Pulse Ox 96 96 95 98 O2 Delivery Room Air Nasal Cannula Nasal Cannula Nasal Cannula O2 Flow Rate 2 2 2 08/18/16 08/18/16 08/18/16 08/18/16 17:21 17:26 17:36 17:46 Pulse 85 86 91 89 B/P 132/95 142/87 134/94 131/91 Pulse Ox 98 98 98 97 O2 Delivery Nasal Cannula Nasal Cannula Nasal Cannula Nasal Cannula O2 Flow Rate 2 2 2 2 08/18/16 08/18/16 08/18/16 08/18/16 17:56 18:06 18:16 18:26 Pulse 91 89 89 88 B/P 136/95 138/92 130/94 127/93 Pulse Ox 98 98 99 98 O2 Delivery Nasal Cannula Nasal Cannula Nasal Cannula Nasal Cannula O2 Flow Rate 2 2 2 2 08/18/16 08/18/16 08/18/16 08/18/16 18:36 18:46 18:56 19:06 Pulse 85 87 86 86 Resp 17 B/P 129/94 130/97 129/92 124/97 Pulse Ox 99 99 98 98 O2 Delivery Nasal Cannula Nasal Cannula Nasal Cannula Nasal Cannula O2 Flow Rate 2 2 2 2 08/18/16 08/18/16 08/18/16 08/18/16 19:16 19:26 19:26 19:36 Pulse 88 90 90 91 B/P 127/94 133/87 133/87 126/93 Pulse Ox 98 98 98 97 O2 Delivery Nasal Cannula Nasal Cannula Nasal Cannula Nasal Cannula O2 Flow Rate 2 2 2 2 08/18/16 08/18/16 08/18/16 08/18/16 19:41 20:15 20:30 21:52 Temp 98.1 98.1 Pulse 90 87 96 92 Resp 21 20 18 B/P 133/91 140/91 138/91 140/87 Pulse Ox 97 O2 Delivery Nasal Cannula Nasal Cannula Nasal Cannula Nasal Cannula O2 Flow Rate 2 2.0 2.0 2.0 08/18/16 08/18/16 08/18/16 08/19/16 22:41 23:02 23:59 00:05 Pulse 89 87 Resp 19 21 B/P 120/88 114/76 O2 Delivery Nasal Cannula Nasal Cannula Nasal Cannula Nasal Cannula O2 Flow Rate 2.0 2.0 2.0 2.0 08/19/16 08/19/16 08/19/16 08/19/16 01:06 02:20 03:17 04:00 Pulse 94 90 94 88 Resp 14 15 B/P 116/80 140/84 134/92 128/86 Pulse Ox 95 95 94 97 O2 Delivery Nasal Cannula Nasal Cannula Nasal Cannula Nasal Cannula O2 Flow Rate 2.0 2.0 2.0 2.0 08/19/16 08/19/16 08/19/16 08/19/16 04:00 05:00 06:12 07:00 Temp 97.7 97.7 Pulse 94 86 95 Resp 15 16 14 B/P 130/89 158/88 136/86 Pulse Ox 97 96 97 O2 Delivery Nasal Cannula Nasal Cannula Nasal Cannula Nasal Cannula O2 Flow Rate 2.0 2.0 2.0 2.0 08/19/16 08/19/16 08/19/16 08/19/16 08:00 08:00 09:00 10:00 Temp 97.9 97.9 Pulse 91 88 83 Resp 18 17 19 B/P 123/89 125/86 140/88 Pulse Ox 97 96 96 O2 Delivery Nasal Cannula Nasal Cannula Room Air Room Air O2 Flow Rate 2.0 2.0 08/19/16 08/19/16 08/19/16 10:32 11:00 11:32 Pulse 78 Resp 16 18 15 B/P 134/80 Pulse Ox 96 95 96 O2 Delivery Room Air Room Air Room Air Intake and Output 08/18/16 08/18/16 08/19/16 15:00 23:00 07:00 Intake Total 1000 ml 1062.70 ml Output Total 725 ml 450 ml Balance 275 ml 612.70 ml MACIEJ LYNCH MD Aug 19, 2016 11:53
[2016-08-19] MEDS ORDERED: MAG HYDROX/ALUMINUM HYD/SIMETH 30 ML ORAL.SUSP PO PRN (12:00)
[2016-08-19] MEDS ORDERED: LIDO:MAALOX:DONNATAL 1:1:1 15 ML SINGLE DOSE SWSW ONE (12:00)
[2016-08-19] MEDS: ENOXAPARIN 40 MG/0.4 ML DISP.SYRIN. SQ SCH (21:29)
[2016-08-20] MEDS: TRAMADOL 50 MG TABLET. PO PRN ×2 (00:26→09:19)
[2016-08-20 02:50] VITALS: BP 113/77
[2016-08-20 03:44] LABS: BASO # 0.1 x10^3/uL (0.0-0.2); BASO % 1 % (0-3); EOS % 2 % (0-3); HEMATOCRIT 42.3 % (39.0-53.0); HEMOGLOBIN 14.5 g/dL (13.0-17.5); LYMPH # 2.9 x10^3/uL (1.0-4.8); LYMPH % 31 % (24-48); MEAN CORPUSCULAR HEMOGLOBIN 32 pg (25-35); MEAN CORPUSCULAR HGB CONC 34 g/dL (31-37); MEAN CORPUSCULAR VOLUME 93 fL (79-100); MONO % 10 % (0-9); NEUT % 57 % (31-73); PLATELET COUNT 195 x10^3/uL (140-400); RED BLOOD COUNT 4.55 x10^6/uL (4.30-5.70); RED CELL DISTRIBUTION WIDTH 13.5 % (11.5-14.5); WHITE BLOOD COUNT 9.4 x10^3/uL (4.0-11.0)
[2016-08-20 04:00] LABS: ALBUMIN 2.7 g/dL (3.4-5.0); CALCIUM 8.2 mg/dL (8.5-10.1); CREATININE 1.2 mg/dL (0.7-1.3); GFR 62.9; POTASSIUM 3.2 mmol/L (3.5-5.1); TOTAL BILIRUBIN 0.7 mg/dL (0.2-1.0); TOTAL PROTEIN 5.5 g/dL (6.4-8.2)
[2016-08-20] MEDS ORDERED: DIAZEPAM 5 MG TABLET PO SCH (05:00)
[2016-08-20] MEDS: DIAZEPAM 5 MG TABLET PO SCH ×2 (05:24→13:01)
[2016-08-20] MEDS: FAMOTIDINE 20 MG TABLET. PO SCH (05:24)
[2016-08-20 07:00] VITALS: BP 118/82
[2016-08-20] MEDS: QUEtiapine 100 MG TABLET. PO SCH (09:14)
[2016-08-20] MEDS: MULTIVIT INFUSN,ADULT 4,VIT K 10 ML, FOLIC ACID 1 MG, THIAMINE 100 MG in IV DEXTROSE 5 ... IV SCH (09:19)
[2016-08-20 11:00] VITALS: BP 98/67
[2016-08-20] MEDS ORDERED: LIDO:MAALOX:DONNATAL 1:1:1 15 ML SINGLE DOSE SWSW PRN (11:00)
[2016-08-20] MEDS ORDERED: POTASSIUM CHLORIDE 20 MEQ TABLET.ER. PO ONE (11:30)
[2016-08-20] MEDS ORDERED: LEVOFLOXACIN 500 MG TABLET PO SCH (12:00)
[2016-08-20] MEDS ORDERED: LEVO500T38 PO (12:03)
--- NOTE | 2016-08-20 14:20 | PDOC3 ---
Discharge Summary [facility] Date of Admission: Aug 18, 2016 Discharge Date: Aug 20, 2016 Admitting Diagnosis 1. suicidal attempt with drug overdose (seroquel) 2. previous suicidal attempts 3. severe depression, bipolar type 2 4. HTN 5. HLD 6. PTSD 7. HYPernatremia 8. n/v ,ABD pain with 1 9. hypokalemia 10. mild malnutrition 11. bronchitis Problems: Final Diagnosis Problems Medical Problems: (1) Overdose Status: Acute (2) Suicidal ideation Status: Acute Brief Hospital Course 55yo M, was sent from EMS for seroquel overdose. He tried to suicide. He tried other ways to suicide before. He lives a lone, no family or friends. Has bipolar type 2 with severe depression, PTSD. He took 60 pills of seroquel this afternoon, 400mg per pill. He was on the phone with the person from a psych hosp while taking his pills, who called EMS and sent him here. since taking the seroquel, he drank lots of water, with N/V ( bloody), and severe epigastric abd pain. vitals stable in ER. i was told he was lethargic in ER, when i saw him , he was able to talk pretty logically. agree to get psych help and readmit to the psych facility. pt is stable in ICU and on the floor, transfer to in psych today. levaquin was started in ICU, will cont for 4ds. dc time 35min. GEN.: No apparent distress. Alert and oriented. HEENT: Head is normocephalic, atraumatic NECK: Supple. LUNGS: Clear to auscultation. HEART: RRR, S1, S2 present. Peripheral pulses intact ABDOMEN: Soft, nontender. Positive bowel sounds. EXTREMITIES: Without any cyanosis. NEUROLOGIC: Normal speech, normal tone PSYCHIATRIC: Normal affect, normal mood. SKIN: No ulcerations Patient History: Family history: Cardiovascular disease (situation) 33 FATHER, 32 MOTHER, Family history: Schizophrenia (situation) 33 FATHER, Problems: Disposition psych hosp CONDITION AT DISCHARGE: Improved Diet regular Scheduled Diazepam (Diazepam) 20 MG PO DAILY05 (Reported) Diazepam (Diazepam) 10 MG PO NOON (Reported) Levofloxacin (Levaquin) 500 MG PO DAILY06 Quetiapine Fumarate (Quetiapine Fumarate) 400 MG PO BIDACBL (Reported) Ranitidine Hcl (Ranitidine Hcl) 300 MG PO DAILY05 (Reported) Scheduled PRN Tramadol Hcl (Tramadol Hcl) 100 MG PO Q6HRS PRN PRN PAIN (Reported) Discontinued Medications Cyproheptadine Hcl (Cyproheptadine Hcl) (Reported) SALVADOR OBRIEN MD Aug 20, 2016 14:20
== END 2016-08-20 14:00 | disposition short-term general hospital (02) | DRG 918 ==
LOC: ER 16:55 → 1 WEST ICU 18:02 → 5 NORTH 08-19 15:17
PROVIDERS: ADMIT Internal Medicine; ATTEND Internal Medicine
DX: T43.592A Poisoning by other antipsychotics and neuroleptics, intentional self-harm, initial encounter (principal); E44.1 Mild protein-calorie malnutrition; E87.0 Hyperosmolality and hypernatremia; F31.81 Bipolar II disorder; E78.00 Pure hypercholesterolemia, unspecified; E78.5 Hyperlipidemia, unspecified; E87.6 Hypokalemia; F10.10 Alcohol abuse, uncomplicated; F43.10 Post-traumatic stress disorder, unspecified; I10 Essential (primary) hypertension; F41.9 Anxiety disorder, unspecified; J40 Bronchitis, not specified as acute or chronic; Z81.8 Family history of other mental and behavioral disorders; Z82.49 Family history of ischemic heart disease and other diseases of the circulatory system; Y92.89 Other specified places as the place of occurrence of the external cause; Z88.2 Allergy status to sulfonamides; Z88.8 Allergy status to other drugs, medicaments and biological substances; Z68.24 Body mass index [BMI] 24.0-24.9, adult
CPT/HCPCS: 36415; 51702; 71010; 80048; 80053; 81001; 83735; 85027; 87641; 93005; 94250; 96360; C9113; G0480; G0481; G6038; J1650; J1956; J2405; J7030; 80196; 99285-25

== ENCOUNTER 2018-06-09 09:00 | Emergency (ER) | payer MEDICARE, OTHER ==
[~2018-06-09] VITALS: Ht 188 cm; Wt 86.2 kg
[~2018-06-09 09:00] MED LIST: CYPR4TAB31; DIAZEPAM10 MG PO; LEVO500T59 PO; QUET400T PO; RANI300T PO; TRAM50TA PO
[2018-06-09] MEDS ORDERED: ALPRAZolam 0.5 MG TABLET PO ONE (09:15)
[2018-06-09] MEDS ORDERED: IV NORMAL SALINE 1000ML BAG 1,000 ML IV ONE (09:30)
--- NOTE | 2018-06-09 09:34 | EKG ---
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
[2018-06-09 09:42] LABS: BASO # 0.1 x10^3/uL (0.0-0.2); BASO % 1 % (0-3); EOS # 0.1 x10^3/uL (0.0-0.7); EOS % 1 % (0-3); HEMATOCRIT 46.9 % (39.0-53.0); HEMOGLOBIN 16.4 g/dL (13.0-17.5); LYMPH # 2.7 x10^3/uL (1.0-4.8); LYMPH % 33 % (24-48); MEAN CORPUSCULAR HEMOGLOBIN 34 pg (25-35); MEAN CORPUSCULAR HGB CONC 35 g/dL (31-37); MEAN CORPUSCULAR VOLUME 98 fL (79-100); MONO % 12 % (0-9); NEUT # 4.4 x10^3uL (1.8-7.7); NEUT % 53 % (31-73); PLATELET COUNT 236 x10^3/uL (140-400); RED BLOOD COUNT 4.79 x10^6/uL (4.30-5.70); RED CELL DISTRIBUTION WIDTH 13.8 % (11.5-14.5); WHITE BLOOD COUNT 8.3 x10^3/uL (4.0-11.0)
[2018-06-09 09:52] LABS: CALCIUM 8.7 mg/dL (8.5-10.1); CREATININE 1.1 mg/dL (0.7-1.3); GFR 69.2; POTASSIUM 3.8 mmol/L (3.5-5.1)
[2018-06-09 09:59] LABS: ALBUMIN 3.5 g/dL (3.4-5.0); TOTAL BILIRUBIN 0.4 mg/dL (0.2-1.0); TOTAL PROTEIN 7.1 g/dL (6.4-8.2)
[2018-06-09 10:12] LABS: BILIRUBIN,URINE NEGATIVE (NEG); CLARITY,URINE CLEAR; COLOR,URINE YELLOW; NITRITE,URINE NEGATIVE (NEG); PROTEIN,URINE NEGATIVE (NEG-TRACE)
[2018-06-09 10:18] LABS: AMPHETAMINE/METHAMPHETAMINE NEG (NEG); BARBITURATES NEG (NEG); BENZODIAZEPINES POS (NEG); CANNABINOIDS NEG (NEG); COCAINE NEG (NEG); METHADONE NEG (NEG); OPIATES NEG (NEG); PHENCYCLIDINE NEG (NEG)
[2018-06-09 10:24] LABS: RBC,URINE 0 /HPF (0-2)
[2018-06-09 10:25] LABS: BACTERIA,URINE 0 /HPF (0-FEW); SQUAMOUS EPITHELIAL CELL,UR OCC /LPF
[2018-06-09 10:39] VITALS: BP 118/81
[2018-06-09] MEDS ORDERED: AMOX1TAB61 PO (10:51)
--- NOTE | 2018-06-09 10:52 | PHYS DOC ---
Past Medical History Past Medical History: Anxiety, Bipolar, Cancer, Depression, High Cholesterol, Hypertension, Other Additional Past Medical Histor: TBI, SKIN CA, PTSD, NECK COMPRESSION FX Past Surgical History: Other Additional Past Surgical Histo: SKIN CA REMOVED(L GROIN), LEFT HAND, TBI, NECK COMPRESSION FX Alcohol Use: Heavy Drug Use: None Adult General Chief Complaint Chief Complaint: ANXIETY/PANIC ATTACK HPI HPI Patient is a 57 year old male who presents with anxiety and a reported panic attack. The patient has a long history of anxiety disorder. He states that he has been self-medicating with alcohol. He has been taking his at home medications as directed. He states that he did take his Seroquel and antianxiety medication this morning. Review of Systems Review of Systems Constitutional: Denies fever or chills [] Eyes: Denies change in visual acuity, redness, or eye pain [] HENT: Denies nasal congestion or sore throat [] Respiratory: Denies cough or shortness of breath [] Cardiovascular: No additional information not addressed in HPI [] GI: Denies abdominal pain, nausea, vomiting, bloody stools or diarrhea [] : Denies dysuria or hematuria [] Musculoskeletal: Denies back pain or joint pain [] Integument: Denies rash or skin lesions [] Neurologic: Denies headache, focal weakness or sensory changes [] Endocrine: Denies polyuria or polydipsia [] All other systems were reviewed and found to be within normal limits, except as documented in this note. Current Medications Current Medications Current Medications Medications (Trade) Dose Ordered Sig/Hayes Start Time Stop Time Status Last Admin Dose Admin Alprazolam (Xanax) 0.5 mg 1X ONCE 06/09/18 09:15 06/09/18 09:16 DC 06/09/18 09:29 0.5 MG Sodium Chloride 1,000 ml @ 1,000 mls/hr 1X ONCE 06/09/18 09:30 06/09/18 10:29 DC 06/09/18 09:29 1,000 MLS/HR Allergies Allergies Allergies Coded Allergies Type Severity Reaction Last Updated Verified fluoxetine Allergy Intermediate 06/29/16 Yes haloperidol Allergy Intermediate 06/29/16 Yes sulfamethoxazole Allergy Intermediate 06/29/16 Yes topiramate Allergy Intermediate 06/29/16 Yes trimethoprim Allergy Intermediate 06/29/16 Yes Physical Exam Physical Exam Constitutional: Well developed, well nourished, no acute distress, non-toxic appearance. [] Neck: Normal range of motion, no tenderness, supple, no stridor. [] Cardiovascular:Heart rate regular rhythm, no murmur [] Lungs & Thorax: Bilateral breath sounds clear to auscultation [] Abdomen: Bowel sounds normal, soft, no tenderness, no masses, no pulsatile masses. [] Skin: Warm, dry, no erythema, no rash. [] Neurologic: Alert and oriented X 3, normal motor function, normal sensory function, no focal deficits noted. [] Psychologic: Affect normal, judgement normal, mood anxious. [] Current Patient Data Vital Signs Vital Signs Date Time Temp Pulse Resp B/P (MAP) Pulse Ox O2 Delivery O2 Flow Rate FiO2 06/09/18 10:39 88 20 118/81 (93) 97 Room Air 06/09/18 09:00 98.2 98.2 Lab Values Laboratory Tests Test 06/09/18 09:25 06/09/18 09:58 White Blood Count 8.3 x10^3/uL (4.0-11.0) Red Blood Count 4.79 x10^6/uL (4.30-5.70) Hemoglobin 16.4 g/dL (13.0-17.5) Hematocrit 46.9 % (39.0-53.0) Mean Corpuscular Volume 98 fL (79-100) Mean Corpuscular Hemoglobin 34 pg (25-35) Mean Corpuscular Hemoglobin Concent 35 g/dL (31-37) Red Cell Distribution Width 13.8 % (11.5-14.5) Platelet Count 236 x10^3/uL (140-400) Neutrophils (%) (Auto) 53 % (31-73) Lymphocytes (%) (Auto) 33 % (24-48) Monocytes (%) (Auto) 12 % (0-9) H Eosinophils (%) (Auto) 1 % (0-3) Basophils (%) (Auto) 1 % (0-3) Neutrophils # (Auto) 4.4 x10^3uL (1.8-7.7) Lymphocytes # (Auto) 2.7 x10^3/uL (1.0-4.8) Monocytes # (Auto) 1.0 x10^3/uL (0.0-1.1) Eosinophils # (Auto) 0.1 x10^3/uL (0.0-0.7) Basophils # (Auto) 0.1 x10^3/uL (0.0-0.2) Sodium Level 145 mmol/L (136-145) Potassium Level 3.8 mmol/L (3.5-5.1) Chloride Level 107 mmol/L (98-107) Carbon Dioxide Level 26 mmol/L (21-32) Anion Gap 12 (6-14) Blood Urea Nitrogen 10 mg/dL (8-26) Creatinine 1.1 mg/dL (0.7-1.3) Estimated GFR (Cockcroft-Gault) 69.2 BUN/Creatinine Ratio 9 (6-20) Glucose Level 91 mg/dL (70-99) Calcium Level 8.7 mg/dL (8.5-10.1) Total Bilirubin 0.4 mg/dL (0.2-1.0) Aspartate Amino Transferase (AST) 18 U/L (15-37) Alanine Aminotransferase (ALT) 28 U/L (16-63) Alkaline Phosphatase 109 U/L (46-116) Total Protein 7.1 g/dL (6.4-8.2) Albumin 3.5 g/dL (3.4-5.0) Albumin/Globulin Ratio 1.0 (1.0-1.7) Urine Color Yellow Urine Clarity Clear Urine pH 6.0 Urine Specific [place] 1.015 Urine Protein Negative mg/dL (NEG-TRACE) Urine Glucose (UA) Negative mg/dL (NEG) Urine Ketones (Stick) Negative mg/dL (NEG) Urine Blood Negative (NEG) Urine Nitrite Negative (NEG) Urine Bilirubin Negative (NEG) Urine Urobilinogen Dipstick 1.0 mg/dL (0.2 mg/dL) Urine Leukocyte Esterase Trace (NEG) Urine RBC 0 /HPF (0-2) Urine WBC 1-4 /HPF (0-4) Urine Squamous Epithelial Cells Occ /LPF Urine Bacteria 0 /HPF (0-FEW) Urine Opiates Screen Neg (NEG) Urine Methadone Screen Neg (NEG) Urine Barbiturates Neg (NEG) Urine Phencyclidine Screen Neg (NEG) Urine Amphetamine/Methamphetamine Neg (NEG) Urine Benzodiazepines Screen Pos (NEG) Urine Cocaine Screen Neg (NEG) Urine Cannabinoids Screen Neg (NEG) Urine Ethyl Alcohol Pos (NEG) Laboratory Tests 06/09/18 09:25 Laboratory Tests 06/09/18 09:25 Microbiology 06/09/18 Urine Culture - Final, Complete 06/09/18 Urine Culture Result 1 (APRIL) - Final, Complete EKG EKG [] Radiology/Procedures Radiology/Procedures [] Course & Med Decision Making Course & Med Decision Making Pertinent Labs and Imaging studies reviewed. (See chart for details) []The patient was found to have urinary tract infection. He met with Adolph, with the psychiatric assessment team, and they did make a plan for him to follow -up with his current counselor. The patient is to continue his at home medications as needed and return to the emergency department if he worsens. He is in agreement with this plan. Staff Physician Addendum: I was working in the ER during the course of this patient's visit. I was available for consultation as needed, but I was not directly involved in the care of this patient. Dragon Disclaimer Nina Disclaimer This electronic medical record was generated, in whole or in part, using a voice recognition dictation system. Departure Departure Impression: Primary Impression: Anxiety and depression Additional Impressions: ETOH abuse Urinary tract infection Disposition: HOME, SELF-CARE Condition: STABLE Referrals: NO PCP (PCP) Patient Instructions: Alcohol Problems, Anxiety and Panic Attacks, Urinary Tract Infection Additional Instructions: Follow your plan you created with Adolph from the psychiatric assessment team. Take your medications as directed. You were found to have a urinary tract infection in the emergency department. Take the antibiotic and follow-up with your primary care provider in one week for urine recheck. If worsening return to the emergency department. Scripts Amoxicillin/Potassium Clav (AUGMENTIN 875-125 TABLET) 1 Each Tablet 1 TAB PO BID for UTI, #20 TAB Prov: GITA CHEN APRN 06/09/18 Problem Qualifiers GITA CHEN APRN Jun 09, 2018 10:52 JUAN BOOGIE MD Jun 14, 2018 20:54
== END 2018-06-09 11:13 | disposition home or self-care (01) ==
LOC: ER 09:00
DX: F41.9 Anxiety disorder, unspecified (principal); F32.9 Major depressive disorder, single episode, unspecified; N39.0 Urinary tract infection, site not specified; F10.10 Alcohol abuse, uncomplicated; Y90.8 Blood alcohol level of 240 mg/100 ml or more; E78.00 Pure hypercholesterolemia, unspecified; I10 Essential (primary) hypertension; F43.10 Post-traumatic stress disorder, unspecified; Z88.1 Allergy status to other antibiotic agents; Z88.2 Allergy status to sulfonamides; Z88.8 Allergy status to other drugs, medicaments and biological substances; Z79.899 Other long term (current) drug therapy
CPT/HCPCS: 36415; 80053; 80307; 81001; 85025; 87086; 93005; 99284; J7030